=== PATIENT | male | born 1985 | race Asian ===

== ENCOUNTER 2023-11-18 06:03 | Day surgery (SDC) | payer BC ==
[~2023-11-18 06:03] MED LIST: Sodium Chloride 0.9% 10 ML Syringe FLUSH PRN; Sodium Chloride 0.9% 2.5 ML Syringe FLUSH PRN; Sodium Chloride 0.9% 20 ML SDV IV PRN; ceFAZolin 2 GM in Sodium Chloride 0.9% 50 ML IV ONE
[2023-11-18] MEDS: Lactated Ringers 1,000 ML IV SCH (06:53)
[2023-11-18] MEDS ORDERED: fentaNYL 100 MCG/2 ML SDV ONE ×2 (07:20→08:29)
[2023-11-18] MEDS ORDERED: Propofol 200 MG/20 ML SDV ONE (07:20)
[2023-11-18] MEDS ORDERED: Dexamethasone 4 MG/ML 5 ML MDV ONE (07:21)
[2023-11-18] MEDS ORDERED: Lidocaine 1% 5 ML VIAL ONE (07:21)
[2023-11-18] MEDS ORDERED: Rocuronium Bromide 50 MG/5 ML Syringe ONE ×2 (07:21→08:40)
[2023-11-18] MEDS ORDERED: dexmedeTOMIDine HCl 200 MCG/2 ML SDV ONE (07:21)
[2023-11-18] MEDS ORDERED: Water For Injection, Sterile 20 ML ONE (07:21)
[2023-11-18] MEDS ORDERED: Ondansetron 4 MG/2 ML SDV ONE (07:21)
[2023-11-18] MEDS ORDERED: Ropivacaine 0.5% 5 MG/ML 30 ML SDV ONE (07:24)
[2023-11-18] MEDS ORDERED: Famotidine 20 MG/2 ML SDV ONE (07:24)
[2023-11-18] MEDS ORDERED: Morphine 10 MG/ML SDV ONE (07:26)
[2023-11-18] MEDS ORDERED: Ketamine HCL/NACL, ISO-OSM 50 MG/5 ML Syringe ONE (07:26)
[2023-11-18] MEDS ORDERED: Bupivacaine 0.5% 30 ML SDV ONE (07:27)
[2023-11-18] MEDS ORDERED: ceFAZolin 2 GM Vial ONE (08:21)
[2023-11-18] MEDS ORDERED: Indocyanine Green 25 MG SDV ONE (08:34)
[2023-11-18] MEDS ORDERED: Sugammadex Sodium 200 MG/2 ML VIAL IV ONE (08:34)
[2023-11-18] MEDS ORDERED: Ketorolac 30 MG/ML SDV ONE (08:46)
== END 2023-11-18 13:30 | disposition home or self-care (01) ==
LOC: MW.SDS 06:03
PROVIDERS: ATTEND Surgery
DX: K80.10 Calculus of gallbladder with chronic cholecystitis without obstruction (principal); K42.9 Umbilical hernia without obstruction or gangrene; E78.00 Pure hypercholesterolemia, unspecified; Z79.899 Other long term (current) drug therapy
CPT/HCPCS: 47563; 64448; J0131; J0665; J0690; J1100; J1885; J2270; J2405; J2704; J2795; J3010; J3490; J7120; 00790; 64488